=== PATIENT | male | born 1980 | race Caucasian/White ===

== ENCOUNTER 2023-12-05 19:40 | Emergency (ER) | payer SELFPAY ==
[2023-12-05 19:47] VITALS: BP 127/72; PULSE 75; TEMP 36.7; O2SAT 100; BMI 25.1
--- NOTE | 2023-12-05 19:59 | CT_ITS ---
[address] [address] Patient Name: GILBERTO FONG MRN: [id number] date: 1980 Sex: M Assigned Patient Location: ER Current Patient Location: ED.MAIN Accession/Order Number: [id number] Exam Date: 12/05/2023 20:32 Report Date: 12/05/2023 22:26 At the request of: JOSE LOVE Procedure: CT soft tissue neck w con EXAM: CT soft tissue neck w con HISTORY: Probable right peritonsillar abscess COMPARISON: None. TECHNIQUE: Axial CT scans of the neck were obtained with IV contrast administration. MPR images were obtained. Dose reduction techniques were achieved by using: automated exposure control and/or adjustment of mA and /or kV according to patient size and/or use of iterative reconstruction technique. FINDINGS: The visualized intracranial contents appear normal. The visualized paranasal sinuses, middle ear cavities and mastoids are clear. The intraorbital contents appear normal. The visualized paranasal sinuses, middle ear cavities and mastoids are clear. The rd scientist spaces, parotid glands and left parapharyngeal spaces appear normal. An abnormal 2.2 x 1.4 x 2.2 cm right peritonsillar fluid collection lateral superiorly with peripheral enhancement indicates a peritonsillar abscess. Associated mild edema in the right parapharyngeal space and mild mucosal edema of the right side of the hypopharynx. A reactive 1.8 x 3.3 cm right level 2 lymph node is present. The oral tongue, the floor the mouth and the submandibular glands appear normal. The thyroid gland and the larynx show no abnormal mass. The prevertebral space shows no edema. The visualized upper lungs show mild centrilobular emphysema. Osseous structures are intact. CT/CT soft tissue neck w con IMPRESSION: A 2.2 x 1.4 x 2.2 cm right peritonsillar abscess with associated mild edema in the right parapharyngeal space and mild mucosal edema of the right side of the hypopharynx. A reactive slightly enlarged 1.8 x 3.3 cm right level 2 lymph node is present. Electronically authenticated by: MARCE BELTRAN Date: 12/05/2023 22:26
--- NOTE | 2023-12-05 20:03 | ED.GENADUL1 ---
HPI HPI - General Adult General Chief complaint: Upper Respiratory Infection Stated complaint: THROAT PAIN Time Seen by Provider: 12/05/23 19:54 Source: patient Mode of arrival: walk-in Limitations: no limitations History of Present Illness HPI narrative: 43-year-old male presents to the emergency department for throat pain. He has had for 3 to 4 days and it has been getting worse. No known ill contacts and he has not had any fever. The pain is on the right side of his throat and it is worse when he swallows and the pain is moderate to severe. Related Data Home Medications ?Medication ?Instructions ?Recorded ?Confirmed No Known Home Medications 12/05/23 12/05/23 Allergies Allergy/AdvReac Type Severity Reaction Status Date / Time No Known Drug Allergies Allergy Verified 12/05/23 19:51 Opioid HPI Opioid Management Most Recent Opioid Data: No Data to Display Review of Systems ROS Narrative A ten point review of systems is negative except as noted above. Exam Narrative Exam Narrative: Nurses note and vital signs reviewed and patient is not hypoxic. General: The patient appears uncomfortable. He is in no respiratory distress. Skin: Warm, dry, no pallor noted. There is no rash noted. Head: Normocephalic, atraumatic Eye: Normal conjunctiva, no drainage Ears, Nose, Mouth, and Throat: oral mucosa is moist. Nares patent. He has right peritonsillar swelling with deviation of the uvula towards the left. No swelling to the floor of his mouth and he is handling his oral secretions well. Cardiovascular: Regular Rate and Rhythm Respiratory: Patient is in no distress, no accessory muscle use, lungs are clear to auscultation, no wheezing, rales or rhonchi Back: non-tender GI: Soft and nontender Musculoskeletal: The patient has no evidence of calf tenderness, no pitting edema, symmetrical pulses noted bilaterally Neurological: A&O, normal speech Psychiatric: Cooperative Constitutional Vital Signs, click to edit/add: Last Vital Signs Temp 98.0 F 12/05/23 19:47 Pulse 75 12/05/23 19:47 Resp 18 12/05/23 19:47 BP 127/72 12/05/23 19:47 Pulse Ox 100 12/05/23 19:47 O2 Del Method Room Air 12/05/23 19:47 Course Vital Signs Vital signs: Vital Signs Temperature 98.0 F 12/05/23 19:47 Pulse Rate 75 12/05/23 19:47 Respiratory Rate 18 12/05/23 19:47 Blood Pressure 127/72 12/05/23 19:47 Pulse Oximetry 100 12/05/23 19:47 Oxygen Delivery Method Room Air 12/05/23 19:47 Temperature 98.0 F 12/05/23 19:47 Pulse Rate 75 12/05/23 19:47 Respiratory Rate 18 12/05/23 19:47 Blood Pressure 127/72 12/05/23 19:47 Pulse Oximetry 100 12/05/23 19:47 Oxygen Delivery Method Room Air 12/05/23 19:47 Medical Decision Making MDM Narrative Medical decision making narrative: Peritonsillar abscess is identified on the right. He is handling his oral secretions well and at this point airway is not an issue. He was given IV Decadron and IV Unasyn and I have spoken to the hospitalist and ENT physician at [facility] and the patient is excepted there. He is agreeable and stable for transfer. Findings were discussed thoroughly with the patient. Differential Diagnosis Differential Diagnosis: Peritonsillar abscess, peritonsillar cellulitis Lab Data Lab results reviewed: Yes I reviewed the patient's lab results Labs: Lab Results 12/05/23 12/05/23 Range/Units 19:52 20:20 WBC 17.0 H (4.0-11.0) 10^3/uL RBC 4.43 L (4.70-6.10) 10^6/uL Hgb 14.0 (14.0-18.0) g/dL Hct 41.5 L (42.0-54.0) % MCV 93.7 (80.0-94.0) fL MCH 31.6 (25.9-34.0) pg MCHC 33.7 (29.9-35.2) g/dL RDW 12.6 (11.0-15.0) % Plt Count 334 (150-450) 10^3/uL MPV 9.6 (9.5-13.5) fL Neut % (Auto) 79.6 H (43.0-75.0) % Lymph % (Auto) 13.5 L (20.5-60.0) % [place] % (Auto) 4.1 (1.7-12.0) % Eos % (Auto) 1.9 (0.9-7.0) % Baso % (Auto) 0.5 (0.2-2.0) % Neut # (Auto) 13.6 H (1.4-6.5) 10^3/uL Lymph # (Auto) 2.3 (1.2-3.8) 10^3/uL [place] # (Auto) 0.7 (0.3-0.8) 10^3/uL Eos # (Auto) 0.3 (0.0-0.7) 10^3/uL Baso # (Auto) 0.1 (0.0-0.1) 10^3/uL Abs Immat Gran (auto) 0.06 H (0.00-0.03) 10^3/uL Imm/Tot Granulo (auto) 0.4 (0.0-0.5) % Sodium 129 L (136-145) mmol/L Potassium 3.7 (3.5-5.1) mmol/L Chloride 95 L (98-107) mmol/L Carbon Dioxide 30.9 (21.0-32.0) mmol/L Anion Gap 6.8 BUN 9.0 (7.0-18.0) mg/dL Creatinine 1.07 (0.70-1.30) mg/dL Est GFR ( Amer) >60 (>=60) Est GFR (Non-Af Amer) >60 (>=60) BUN/Creatinine Ratio 8.4 Glucose 171 H (74-106) mg/dL Calcium 8.6 (8.5-10.1) mg/dL Monoscreen Negative (NEGATIVE) Streptococcus Screen Negative Imaging Data CT neck: Radiologist's impression: ITS Impressions Soft Tissue Neck CT 12/05/23 19:59 IMPRESSION: A 2.2 x 1.4 x 2.2 cm right peritonsillar abscess with associated mild edema in the right parapharyngeal space and mild mucosal edema of the right side of the hypopharynx. A reactive slightly enlarged 1.8 x 3.3 cm right level 2 lymph node is present. Electronically authenticated by: MARCE BELTRAN Date: 12/05/2023 22:26 Discharge Plan Discharge Chief Complaint: Upper Respiratory Infection Clinical Impression: Peritonsillar abscess Patient Disposition: Xfer Acute Care Hospital Time of Disposition Decision: 23:26 Discharge Location: [facility] Condition: Fair Mode of Transportation: EMS
[2023-12-05 20:06] LABS: Internal Control Within Normal Limits; Strep A Antigen Screen Negative
[2023-12-05 20:39] LABS: Basophils Absolute Auto 0.1 10^3/uL (0.0-0.1); Basophils Percent Auto 0.5 % (0.2-2.0); Eosinophils Absolute Auto 0.3 10^3/uL (0.0-0.7); Eosinophils Percent Auto 1.9 % (0.9-7.0); Hematocrit 41.5 % (42.0-54.0); Immature Granulocytes Abs Auto 0.06 10^3/uL (0.00-0.03); Immature Granulocytes Pct Auto 0.4 % (0.0-0.5); Lymphocytes Absolute Auto 2.3 10^3/uL (1.2-3.8); Lymphocytes Percent Auto 13.5 % (20.5-60.0); Mean Corpuscular HGB Conc 33.7 g/dL (29.9-35.2); Mean Corpuscular Hemoglobin 31.6 pg (25.9-34.0); Mean Corpuscular Volume 93.7 fL (80.0-94.0); Mean Platelet Volume 9.6 fL (9.5-13.5); Monocytes Absolute Auto 0.7 10^3/uL (0.3-0.8); Monocytes Percent Auto 4.1 % (1.7-12.0); Neutrophils Absolute Auto 13.6 10^3/uL (1.4-6.5); Neutrophils Percent Auto 79.6 % (43.0-75.0); Platelet Count 334 10^3/uL (150-450); Red Blood Count 4.43 10^6/uL (4.70-6.10); Red Cell Distribution Width 12.6 % (11.0-15.0)
[2023-12-05 20:52] LABS: Anion Gap 6.8; BUN Creatinine Ratio 8.4; Calcium 8.6 mg/dL (8.5-10.1); Carbon Dioxide 30.9 mmol/L (21.0-32.0); Chloride 95 mmol/L (98-107); Estimated GFR (African America >60 (>=60); Estimated GFR (Non-African Ame >60 (>=60); Glucose 171 mg/dL (74-106); Potassium 3.7 mmol/L (3.5-5.1); Sodium 129 mmol/L (136-145)
[2023-12-05 20:54] LABS: Internal Control Within Normal Limits; Mono Screen NEGATIVE (NEGATIVE)
[2023-12-05] MEDS: AMPICILLIN SODIUM/SULBACTAM NA 3 GM in 0.9 % SODIUM CHLORIDE 100 ML IV (20:54)
[2023-12-05] MEDS: DEXAMETHASONE SOD PHOS 10 MG/ML VIAL IV (23:37)
[2023-12-05 23:40] VITALS: BP 118/73; PULSE 63; O2SAT 99
[2023-12-06 03:34] VITALS: BP 98/53; PULSE 66; O2SAT 98
== END 2023-12-06 04:14 | disposition short-term general hospital (02) ==
PROVIDERS: Emergency Provider Emergency Medicine
DX: J36 Peritonsillar abscess (principal)
CPT/HCPCS: 36415; 70491; 80048; 85025; 86308; 87040; 87070; 87880; 96365; 96375; 99285; J0295; J1100; Q9967

== ENCOUNTER 2025-02-26 01:38 | Emergency (ER) | payer OTHER, SELFPAY ==
[2025-02-26 01:39] VITALS: BP 134/80; PULSE 85; TEMP 36.4; O2SAT 100; BMI 23.6
--- OUTSIDE RECORDS SUMMARY | 2025-02-26 01:49 | XMS_ITS | CCD ---
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 Name Role Phone Unavailable Primary Care Provider UnavailJOSESITO Singh Attending Unavailable LISA JIANG Attending Unavailable Lesa Chapin CNP Primary Care Provider Unavailable Primary Care Provider UnavailLINDA Can Attending Unavailable JOSE LOVE Referring Unavailable EMILIE PEREZ Admitting Unavailable LINDA CASILLAS Consulting Unavailable DEBORAH MATTHEWS Consulting Unavailable PEEWEE HUERTA Consulting Unavailable Medications Current Medications Medication Drug Class(es) Dates Sig (Normalized) Sig (Original) cephalexin 500 mg oral capsule (4 sources) Cephalosporin Antibacterial Start: 12-30-2020 End: 01-09-2021 Cephalexin 500 MG Oral Capsule 01/06/2021 Provider: Start: 05-02-2019 End: 05-09-2019 take 1 capsule by mouth four times daily cephALEXin (KEFLEX) 500 MG capsule Take 1 capsule by mouth 4 times daily for 7 days 28 capsule 0 05/02/2019 05/09/2019 Active ibuprofen 600 mg oral tablet (1 source) Nonsteroidal Anti-inflammatory Drug Start: 12-30-2020 take 1 tablet by mouth four times daily as needed for pain ibuprofen (ADVIL;MOTRIN) 600 MG tablet Take 1 tablet by mouth 4 times daily as needed for Pain 60 tablet 1 12/30/2020 Active Start: 12-30-2020 take 1 tablet by dwight th four times daily as needed for pain ibuprofen (ADVIL;MOTRIN) 600 MG tablet Take 1 tablet by mouth 4 times daily as needed for Pain 60 tablet 1 12/30/2020 Active Probiotic Acidophilus (FLORANEX) TABS (1 source) Start: 12-30-2020 End: 01-29-2021 take 1 tablet by mouth once daily Probiotic Acidophilus (FLORANEX) TABS Take 1 tablet by mouth daily 30 tablet 0 12/30/2020 01/29/2021 Active Completed/Discontinued Medications Medication Drug Class(es) Dates Sig (Normalized) Sig (Original) ceFAZolin (ANCEF) 1,000 mg in dextrose 5 % 50 mL IVPB (mini-bag) (1 source) Start: 12-30-2020 End: 12-30-2020 ceFAZolin (ANCEF) 1,000 mg in dextrose 5 % 50 mL IVPB (mini-bag) dicyclomine hydrochloride 10 mg oral capsule (1 source) Anticholinergic Start: 01-08-2016 End: 05-02-2019 take 1 capsule by mouth four times daily before mealtime dicyclomine (BENTYL) 10 MG capsule Take 1 capsule by mouth 4 times daily (before meals and nightly) 12 capsule 3 01/08/2016 05/02/2019 Discontinued (LIST CLEANUP) ondansetron 4 mg disintegrating oral tablet (1 source) Serotonin-3 Receptor Antagonist Start: 01-08-2016 End: 05-02-2019 take 1 tablet by mouth every six hours as needed for nausea ondansetron (ZOFRAN ODT) 4 MG disintegrating tablet Take 1 tablet by mouth every 6 hours as needed for Nausea or Vomiting 10 tablet 0 01/08/2016 05/02/2019 Discontinued (LIST CLEANUP) 50 ml sodium chloride 9 mg/ml injection (1 source) Start: 12-30-2020 End: 12-30-2020 0.9 % sodium chloride bolus Problems Active Problems Problem Classification Problem Date Documented Date Episodic/Chronic Acute and chronic tonsillitis (2 sources) Peritonsillar abscess; Translations: [Peritonsillar abscess] Onset: 12-06-2023 Episodic Alcohol-related disorders (3 sources) Alcohol abuse; Translations: [Alcohol abuse, unspecified] Onset: 01-06-2021 Chronic Immunizations and screening for infectious disease (2 sources) HIV screening; Translations: [Special screening examination for other specified viral diseases] Onset: 01-06-2021 Episodic Mood disorders (3 sources) Depressive disorder; Translations: [Major depressive disorder, single episode, unspecified] Onset: 05-31-2015 05-31-2015 Chronic Open wounds of extremities (5 sources) Laceration of right wrist; Translations: [Laceration without foreign body of right wrist, initial encounter] Onset: 01-06-2021 Episodic Other injuries and conditions due to external causes (1 source) Puncture wound - injury; Translations: [Other injury of unspecified body region, initial encounter] Episodic Other nutritional; endocrine; and metabolic disorders (2 sources) Finding of body mass index; Translations: [Body mass index (observable entity)] Onset: 01-06-2021 Episodic Other screening for suspected conditions (not mental disorders or infectious disease) (2 sources) Encounter for screening for diabetes mellitus; Translations: [Diabetes Risk Test Score] Onset: 01-06-2021 Episodic Peritonitis and intestinal abscess (2 sources) Peritoneal abscess; Translations: [Peritoneal abscess] Onset: 12-06-2023 Episodic Substance-related disorders (3 sources) Tobacco dependence syndrome; Translations: [Tobacco use disorder] Onset: 01-06-2021 Chronic Past or Other Problems Problem Classification Problem Date Documented Da te Episodic/Chronic Open wounds of extremities (1 source) Laceration of hand Episodic Results Test Name Value Interpretation Reference Range Facility Cult,[place] 12-08-2023 Cult,Wound Specimen Description .THROAT Direct Exam FEW NEUTROPHILS FEW GRAM POSITIVE COCCI Culture STREPTOCOCCUS PYOGENES (GROUP A) HEAVY GROWTH NO NORMAL SHANEKA Report Status FINAL 12/08/2023 Normal [facility] Comment on above: Performed By: #### W DC #### [facility] [employer] [address] [place] [address] [id number] Pole Framer Machine: Humza Benítez MD CBC auto differentialOrdered By: Lisa Jiang on 12-30-2020 Absolute Eos # 0.75 High Blue [employer] [facility] Work Phone: Absolute Immature Granulocyte <0.03 [employer] Work Phone: Absolute Lymph # 3.29 [employer] [facility] Work Phone: Absolute [place] # 0.61 [employer] [facility] Work Phone: Basophils (Bld) [#/Vol] 0.09 10*3/uL [employer] Work Phone: Basophils/100 WBC (Bld) 1 % 0 - 2 % M [employer] Phone: Differential Type NOT REPORTED [employer] Phone: Eosinophils/100 WBC (Bld) 6 % High 1 - 4 % [employer] Phone: Hematocrit (Bld) [Volume fraction] 41.9 % 40.7 - 50.3 % [employer] Phone: Hemoglobin.gastrointesti nal spec 1 Ql (Stl) 14.0 g/dL 13.0 - 17.0 g/dL [employer] Phone: Immature granulocytes/100 WBC (Bld) 0 % 0 [employer] Phone: Interpretation and review of laboratory results Abnormal [employer] Phone: Lymphocytes/100 WBC (Bld) 27 % 24 - 43 % [employer] Phone: MCH (RBC) [Entitic mass] 31.4 pg 25. 2 - 33.5 pg [employer] Phone: MCHC (RBC) [Mass/Vol] 33.4 g/dL 28.4 - 34.8 g/dL [employer] Phone: MCV (RBC) [Entitic vol] 93.9 fL 82.6 - 102.9 fL [employer] Phone: Monocytes/100 WBC (Bld) 5 % 3 - 12 % M [employer] Phone: NRBC Automated 0.0 0.0 per 100 WBC [employer] Phone: Platelet distribution width (Bld) [Ratio] 13.2 % 11.8 - 14.4 % [employer] Phone: Platelet Estimate NOT REPORTED [employer] Phone: Platelet mean volume (Bld) [Entitic vol] 9.9 fL 8.1 - 13.5 fL [employer] Work Phone: Platelets (Bld) [#/Vol] 254 10*3/uL [employer] Phone: RBC (Bld) [#/Vol] 4.46 10*6/uL 4.21 - 5.7 7 m/uL [employer] Work Phone: RBC (Bld) [#/Vol] NOT REPORTED [employer] Phone: Segmented neutrophils/100 WBC (Bld) 61 % 36 - 65 % [employer] Work Phone: Segs Absolute 7.34 [employer] Work Phone: WBC (Bld) [#/Vol] 12.1 10*3/uL High [employer] Phone: WBC (Bld) [#/Vol] NOT REPORTED [employer] Phone: [employer] Phone: CBC with Diffon 12-30-2020 Abs. Basophil 0.09 k/uL Normal 0.00-0.20 [facility] Comment on above: Performed By: #### C P, CDP #### [facility] [address] [place] [address] Pole Framer Machine: Catracho Chong MD Abs.Imm.Granulocyte <0.03 Normal 0.00-0.30 [facility] Comment on above: Performed By: #### C P, CDP #### [facility] [address] [place] [address] [employer] Fr[employer] Machine: Catracho Chong MD Abs.Neutrophil (Seg) 7.34 k/uL Normal 1.50-8.10 [facility] Comment on above: Performed By: #### C P, CDP #### [facility] [address] [place] [address] [employer] Framer Machine: Catracho Chong MD Basophils/100 WBC (Bld) 1 % Normal 0-2 M [facility] Comment on above: Performed By: #### C P, CDP #### [address] [place], [place] [id number] [employer] Machine: Catracho Chong MD Eosinophils (Bld) [#/Vol] 0.75 10*3/uL High 0.00-0.44 [facility] Comment on above: Performed By: #### C P, CDP #### [address] [place] [address] [employer] Machine: Catracho Chong MD Eosinophils/100 WBC (Bld) 6 % High 1-4 [facility] Comment on above: Performed By: #### C P, CDP #### [address] [place], [place] [id number] [employer] Machine: Catracho Chong MD Erythrocyte distribution width (RBC) [Ratio] 13.2 % Normal 11.8-14.4 [facility] Comment on above: Performed By: #### C P, CDP #### [address] [place], [place] [id number] [employer] Machine: Catracho Chong MD Hematocrit (Bld) [Volume fraction] 41.9 % Normal 40.7-50.3 [facility] Comment on above: Performed By: #### C P, CDP #### [address] [place], [place] [id number] [employer] Machine: Catracho Chong MD Hemoglobin (Bld) [Mass/Vol] 14.0 g/dL Normal 13.0-17.0 [facility] Comment on above: Performed By: #### C P, CDP #### [address] [place] [address] Pole Framer Machine: Catracho Chong MD Immature granulocytes/100 WBC (Bld) 0 % Normal 0 [facility] Comment on above: Performed By: #### C P, CDP #### [facility] [address] [place], [facility] Pole Framer Machine: Catracho Chong MD Lymphocytes (Bld) [#/Vol] 3.29 10*3/uL Normal 1.10-3.70 [facility] Comment on above: Performed By: #### C P, CDP #### [address] [place], [facility] [employer] Machine: Catracho Chong MD Lymphocytes/100 WBC (Bld) 27 % Normal 24-43 [facility] Comment on above: Performed By: #### C P, CDP #### [address] [place], [facility] [employer] Machine: Catracho Chong MD MCH (RBC) [Entitic mass] 31.4 pg Normal 25.2-33.5 [facility] Comment on above: Performed By: #### C P, CDP #### [address] [place], [facility] Pole Framer Machine: Catracho Chong MD MCHC (RBC) [Mass/Vol] 33.4 g/dL Normal 28.4-34.8 [facility] Comment on above: Performed By: #### C P, CDP #### [address] [place], [place] [address] Pole Framer Machine: Catracho Chong MD MCV (RBC) [Entitic vol] 93.9 fL Normal 82.6-102.9 M [facility] Comment on above: Performed By: #### C P, CDP #### [address] [place] [address] Pole Framer Machine: Catracho Chong MD Monocytes (Bld) [#/Vol] 0.61 10*3/uL Normal 0.10-1.20 [facility] Comment on above: Performed By: #### C P, CDP #### [facility] [address] [place], [place] [id number] Pole Framer Machine: Catracho Chong MD Monocytes/100 WBC (Bld) 5 % Normal 3-12 M [facility] Comment on above: Performed By: #### C P, CDP #### [facility] [address] [place], [place] [id number] [employer] Machine: Catracho Chong MD Neutrophil (Seg) 61 % Normal 36-65 [facility] Comment on above: Performed By: #### C P, CDP #### [facility] [address] [place], [place] [id number] [employer] Framer Machine: Catracho Chong MD NRBC Automated 0.0 per 100 WBC Normal 0.0 [facility] Comment on above: Performed By: #### C P, CDP #### [facility] [address] [place], [place] [id number] [employer] Machine: Catracho Chong MD Platelet mean volume (Bld) [Entitic vol] 9.9 fL Normal 8.1-13.5 [facility] Comment on above: Performed By: #### C P, CDP #### [address] [place], [place] [id number] Pole Fr[employer] Machine: Catracho Chong MD Platelets (Bld) [#/Vol] 254 10*3/uL Normal 138-453 [facility] Comment on above: Performed By: #### C P, CDP #### [facility] [address] [place] [address] [place] [place], [place] [id number] Pole Fr[employer] Machine: Catracho Chong MD RBC (Bld) [#/Vol] 4.46 10*6/uL Normal 4.21-5.77 [facility] Comment on above: Performed By: #### C P, CDP #### [facility] [address] [place] [address] Pole Framer Machine: Catracho Chong MD WBC (Bld) [#/Vol] 12.1 10*3/uL High 3.5-11.3 [facility] Comment on above: Performed By: #### C P, CDP #### [facility] [address] [place], [place] [id number] Pole [employer] Machine: Catracho Chong MD Auto Diff Performed NOT REPORTED Normal [facility] Comment on above: Performed By: #### C P, CDP #### [facility] [address] [place], [place] [id number] Pole Framer Machine: Catracho Chong MD Platelet Estimate NOT REPORTED Normal [facility] Comment on above: Performed By: #### C P, CDP #### [facility] [address] [place], [place] [id number] Pole Framer Machine: Catracho Chong MD RBC morphology finding Nom (Bld) NOT REPORTED Normal [facility] Comment on above: Performed By: #### C P, CDP #### [facility] [address] [place] [address] [place] [address] Pole Framer Machine: Catracho Chong MD WBC Morphology NOT REPORTED Normal [facility] Comment on above: Performed By: #### C P, CDP #### [facility] [address] [place] [address] Dr[place], [place] [id number] [employer] Machine: Catracho Chong MD Comp Metabolic Profon 2020 Calcium [Mass/Vol] 9.0 mg/dL Normal 8.6-10.4 [facility] Comment on above: Performed By: #### C P, CDP #### [facility] [address] [place], [place] [id number] [employer] Machine: Catracho Chong MD (cont.) Normal [facility] Comment on above: Result Comment: Aver age GFR for 30-39 years old: 107 mL/min/1.73sq m Chronic Kidney Disease: <60 mL/min/1.73sq m Kidney failure: <15 mL/min/1.73sq m eGFR calculated using average adult body mass. Additional eGFR calculator available at: http://[email or web address].Joroto/multiple_crcl_2012.htm Performed By: #### C P, CDP #### [facility] [address] [place], [place] [id number] Pole Framer Machine: Catracho Chong MD Albumin [Mass/Vol] 4.7 g/dL Normal 3.5-5.2 [facility] Comment on above: Performed By: #### C P, CDP #### [facility] [address] [place] [address] Pole Framer Machine: Catracho Chong MD Albumin/Glob Ratio 2.1 Normal 1.0-2.5 [facility] Comment on above: Performed By: #### C P, CDP #### [facility] [address] [place], [place] [id number] Pole Fr[employer] Machine: Catracho Chong MD Alkaline Phos 65 U/L Normal 40-129 [facility] Comment on above: Performed By: #### C P, CDP #### [facility] [address] [place], [place] [id number] Pole Framer Machine: Catracho Chong MD ALT [Catalytic activity/Vol] 15 U/L Normal 5-41 [facility] Comment on above: Performed By: #### C P, CDP #### [facility] [address] [place] [address] Pole Framer Machine: Catracho Chong MD Anion gap [Moles/Vol] 13 mmol/L Normal 9-17 [facility] Comment on above: Performed By: #### C P, CDP #### [facility] [address] [place], [place] [id number] Pole Fr[employer] Machine: Catracho Chong MD AST [Catalytic activity/Vol] 21 U/L Normal <40 [facility] Comment on above: Performed By: #### C P, CDP #### [facility] [address] [place], [place] [id number] Pole Framer Machine: Catracho Chong MD Bilirubin [Mass/Vol] 0.41 mg/dL Normal 0.3-1.2 [facility] Comment on above: Performed By: #### C P, CDP #### [facility] [address] [place], [place] [id number] Pole Framer Machine: Catracho Chong MD BUN/CRE Ratio 16 Normal 9-20 [facility] Comment on above: Performed By: #### C P, CDP #### [facility] [address] [place], [place] [id number] [employer] Machine: Catracho Chong MD Chloride [Moles/Vol] 100 mmol/L Normal 98-107 [facility] Comment on above: Performed By: #### C P, CDP #### [facility] [address] [place], [place] [id number] Pole Framer Machine: Catracho Chong MD CO2 [Moles/Vol] 22 mmol/L Normal 20-31 [facility] Comment on above: Performed By: #### C P, CDP #### [facility] [address] [place], [place] [id number] Pole Framer Machine: Catracho Chong MD Creatinine [Mass/Vol] 0.87 mg/dL Normal 0.70-1.20 [facility] Comment on above: Performed By: #### C P, CDP #### [facility] [address] [place], [place] [id number] Pole Framer Machine: Catracho Chong MD GFR, Amer >60 Normal >60 [facility] Comment on above: Performed By: #### C P, CDP #### [facility] [address] [place], [place] [id number] Pole Framer Machine: Catracho Chong MD GFR,non Amer >60 Normal >60 [facility] Comment on above: Performed By: #### C P, CDP #### [facility] [address] [place], [place] [phone] Pole Framer Machine: Catracho Chong MD Glucose [Mass/Vol] 109 mg/dL High 70-99 [facility] Comment on above: Performed By: #### C P, CDP #### [facility] [address] [place], [place] [id number] Pole Framer Machine: Catracho Chong MD Potassium [Moles/Vol] 3.9 mmol/L Normal 3.7-5.3 [facility] Comment on above: Performed By: #### C P, CDP #### [facility] [address] [place], [place] [id number] Pole Framer Machine: Catracho Chong MD Protein [Mass/Vol] 6.9 g/dL Normal 6.4-8.3 [facility] Comment on above: Performed By: #### C P, CDP #### [facility] [address] [place], [place] [id number] Pole Framer Machine: Catracho Chong MD Sodium [Moles/Vol] 135 mmol/L Normal 135-144 [facility] Comment on above: Performed By: #### C P, CDP #### [facility] [address] [place], [place] [id number] Pole Framer Machine: Catracho Chong MD Staging: Normal [facility] Comment on above: Result Comment: Stag e 1: Some kidney damage normal GFR Stage 2: Mild kidney damage GFR 60-89 Stage 3: Moderate kidney damage GFR 30-59 Stage 4: Severe kidney damage GFR 15-29 Stage 5: Severe kidney damage GFR <15 ESRD - chronic treatment by dialysis or transplant Performed By: #### C P, CDP #### [facility] [address] [place], [place] [id number] Pole Framer Machine: Catracho Chong MD Urea nitrogen [Mass/Vol] 14 mg/dL Normal 6-20 [facility] Comment on above: Performed By: #### C P, CDP #### [facility] [address] [place] [address] Pole Framer Machine: Catracho Chong MD Comprehensive Metabolic Pane lOrdered By: Lisa Jiang on 12-30-2020 Albumin [Mass/Vol] 4.7 g/dL 3.5 - 5.2 g/dL [facility] Phone: Albumin/Globulin [Mass ratio] 2.1 {ratio} [employer] Phone: ALP (Bld) [Catalytic activity/Vol] 65 U/L 40 - 129 U/L [facility] Phone: ALT [Catalytic activity/Vol] 15 U/L 5 - 41 U/L [facility] Phone: Anion gap [Moles/Vol] 13 mmol/L 9 - 17 mmol/L [facility] Phone: AST [Catalytic activity/Vol] 21 U/L <40 [employer] Phone: Bilirubin [Mass/Vol] 0.41 mg/dL 0.3 - 1 .2 mg/dL [facility] Phone: Calcium [Mass/Vol] 9.0 mg/dL 8.6 - 10. 4 mg/dL [employer] Phone: Chloride [Moles/Vol] 100 mmol/L 98 - 10 7 mmol/L [facility] Phone: CO2 [Moles/Vol] 22 mmol/L 20 - 31 mmol/L [employer] Phone: Creatinine [Mass/Vol] 0.87 mg/dL 0.70 - 1.20 mg/dL [employer] Phone: Free PSA/Total PSA [Mass fraction] 6.9 g/dL 6.4 - 8.3 g/dL [employer] Phone: GFR >60 >60 mL/min [facility] Work Phone: GFR Non- >60 >60 mL/min [facility] Work Phone: Glucose [Mass/Vol] 109 mg/dL High 70 - 99 mg/dL [facility] Work Phone: Interpretation and review of laboratory results Abnormal [facility] Work Phone: Potassium [Moles/Vol] 3.9 mmol/L 3.7 - 5.3 mmol/L [facility] Work Phone: Sodium [Moles/Vol] 135 mmol/L 135 - 144 mmol/L [facility] Work Phone: Urea nitrogen (BldV) [Mass/Vol] 14 mg/dL 6 - 20 mg/dL [facility] Work Phone: Urea nitrogen/Creatinine (Bld) [Mass ratio] 16 [facility] Work Phone: [facility] Work Phone: EthanolOrdered By: Lisa joseph on 12-30-2020 Ethanol [Mass/Vol] 173 mg/dL High <10 [facility] Work Phone: Ethanol percent 0.173 % High <0.010 [facility] Work Phone: Interpretation and review of laboratory results Abnormal [facility] Work Phone: [facility] Work Phone: Ethanol Alcoholon 12-30-2020 Ethanol [Mass/Vol] 173 mg/dL High <10 [facility] Comment on above: Performed By: #### A LCB #### [facility] [address] [place] [address] Pole Framer Machine: Catracho Chong MD Ethanol percent 0.173 % High <0.010 [facility] Comment on above: Performed By: #### A LCB #### [facility] [address] [place] [address] [employer] Machine: Catracho Chong MD Laboratory - Chemistry and C hemistry - challengeOrdered By: Lisa Jiang on 12-30-2020 GFR/1.73 sq M.predicted MDRD (S/P/Bld) [Vol rate/Area] [employer] Phone: Comment on above: Average GFR for 30-3 9 years old: 107 mL/min/1.73sq m Chronic Kidney Disease: <60 mL/min/1.73sq m Kidney failure: <15 mL/min/1.73sq m eGFR calculated using average adult body mass. Additional eGFR calculator available at: http://www.Youth Noise/Geckoboard_crcl_2012.htm Stage 1: Some kidney damage normal GFR Stage 2: Mild kidney damage GFR 60-89 Stage 3: Moderate kidney damage GFR 30-59 Stage 4: Severe kidney damage GFR 15-29 Stage 5: Severe kidney damage GFR <15 ESRD - chronic treatment by dialysis or transplant No Panel InformationOrdered By: Lisa Jiang on 12-30-2020 1. No acute osseous abnormality. 2. Soft tissue laceration along the ulnar aspect of the wrist. No radiopaque foreign body. [employer] Phone: EXAMINATION: TWO XRA Y VIEWS OF THE RIGHT HUMERUS; TWO XRAY VIEWS OF THE RIGHT FOREARM; THREE XRAY VIEWS OF THE RIGHT HAND 12/30/2020 4:30 am COMPARISON: None. HISTORY: ORDERING SYSTEM PROVIDED HISTORY: fall TECHNOLOGIST PROVIDED HISTORY: fall FINDINGS: The glenohumeral and acromioclavicular joints are intact. The elbow is unremarkable. No fracture or dislocation. The joint spaces are preserved. A soft tissue laceration is seen along the ulnar aspect of the wrist. No radiopaque foreign body. [employer] Phone: [place], [employer] Incoming Radiant Results From [facility] - 12/30/2020 4:59 AM EDT EXAMINATION: TWO XRAY VIEWS OF THE RIGHT HUMERUS; TWO XRAY VIEWS OF THE RIGHT FOREARM; THREE XRAY VIEWS OF THE RIGHT HAND 12/30/2020 4:30 am COMPARISON: None. HISTORY: ORDERING SYSTEM PROVIDED HISTORY: fall TECHNOLOGIST PROVIDED HISTORY: fall FINDINGS: The glenohumeral and acromioclavicular joints are intact. The elbow is unremarkable. No fracture or dislocation. The joint spaces are preserved. A soft tissue laceration is seen along the ulnar aspect of the wrist. No radiopaque foreign body. IMPRESSION: 1. No acute osseous abnormality. 2. Soft tissue laceration along the ulnar aspect of the wrist. No radiopaque foreign body. [facility] Work Phone: [facility] Work Phone: XR HAND RIGHT (MIN 3 VIEWS)o n 12-30-2020 XR HAND RIGHT (MIN 3 VIEWS) EXAMINATION: TWO XRAY VIEWS OF THE RIGHT HUMERUS; TWO XRAY VIEWS OF THE RIGHT FOREARM; THREE XRAY VIEWS OF THE RIGHT HAND 12/30/2020 4:30 am COMPARISON: None. HISTORY: ORDERING SYSTEM PROVIDED HISTORY: fall TECHNOLOGIST PROVIDED HISTORY: fall FINDINGS: The glenohumeral and acromioclavicular joints are intact. The elbow is unremarkable. No fracture or dislocation. The joint spaces are preserved. A soft tissue laceration is seen along the ulnar aspect of the wrist. No radiopaque foreign body. IMPRESSION: 1. No acute osseous abnormality. 2. Soft tissue laceration along the ulnar aspect of the wrist. No radiopaque foreign body. Interpreted by: Raymond Acevedo MD Signed by: Raymond Acevedo MD 12/30/20 Final result Normal [facility] XR HUMERUS RIGHT (MIN 2 VIEW S)on 12-30-2020 XR HUMERUS RIGHT (MIN 2 VIEWS) EXAMINATION: TWO XRAY VIEWS OF THE RIGHT HUMERUS; TWO XRAY VIEWS OF THE RIGHT FOREARM; THREE XRAY VIEWS OF THE RIGHT HAND 12/30/2020 4:30 am COMPARISON: None. HISTORY: ORDERING SYSTEM PROVIDED HISTORY: fall TECHNOLOGIST PROVIDED HISTORY: fall FINDINGS: The glenohumeral and acromioclavicular joints are intact. The elbow is unremarkable. No fracture or dislocation. The joint spaces are preserved. A soft tissue laceration is seen along the ulnar aspect of the wrist. No radiopaque foreign body. IMPRESSION: 1. No acute osseous abnormality. 2. Soft tissue laceration along the ulnar aspect of the wrist. No radiopaque foreign body. Interpreted by: Rayomnd Acevedo MD Signed by: Raymond Acevedo MD 12/30/20 Final result Normal [facility] XR RADIUS ULNA RIGHT (2 VIEW S)on 12-30-2020 XR RADIUS ULNA RIGHT (2 VIEWS) EXAMINATION: TWO XRAY VIEWS OF THE RIGHT HUMERUS; TWO XRAY VIEWS OF THE RIGHT FOREARM; THREE XRAY VIEWS OF THE RIGHT HAND 12/30/2020 4:30 am COMPARISON: None. HISTORY: ORDERING SYSTEM PROVIDED HISTORY: fall TECHNOLOGIST PROVIDED HISTORY: fall FINDINGS: The glenohumeral and acromioclavicular joints are intact. The elbow is unremarkable. No fracture or dislocation. The joint spaces are preserved. A soft tissue laceration is seen along the ulnar aspect of the wrist. No radiopaque foreign body. IMPRESSION: 1. No acute osseous abnormality. 2. Soft tissue laceration along the ulnar aspect of the wrist. No radiopaque foreign body. Interpreted by: Raymond Acevedo MD Signed by: Raymond Acevedo MD 12/30/20 Final result Normal [facility] XR FOOT RIGHT (MIN 3 VIEWS)o n 11-19-2020 XR FOOT RIGHT (MIN 3 VIEWS) EXAMINATION: THREE XRAY VIEWS OF THE RIGHT FOOT 11/18/2020 9:28 pm COMPARISON: None. HISTORY: ORDERING SYSTEM PROVIDED HISTORY: stepped on nail TECHNOLOGIST PROVIDED HISTORY: stepped on nail FINDINGS: There is no evidence of acute fracture. There is normal alignment of the tarsometatarsal joints. No acute joint abnormality. No focal osseous lesion. No focal soft tissue abnormality. IMPRESSION: No acute osseous abnormality. No radiopaque foreign body. Interpreted by: Raymond Acevedo MD Signed by: Raymond Acevedo MD 11/18/20 Final result Normal [facility] XR FOOT RIGHT (MIN 3 VIEWS)O rdered By: Josesito Singh on 11-18-2020 No acute osseous abnormality. No radiopaque foreign body. [facility]: EXAMINATION: THREE XRAY VIEWS OF THE RIGHT FOOT 11/18/2020 9:28 pm COMPARISON: None. HISTORY: ORDERING SYSTEM PROVIDED HISTORY: stepped on nail TECHNOLOGIST PROVIDED HISTORY: stepped on nail FINDINGS: There is no evidence of acute fracture. There is normal alignment of the tarsometatarsal joints. No acute joint abnormality. No focal osseous lesion. No focal soft tissue abnormality. [employer] Work Phone: [place], [place] Incoming Radiant Results From [facility] - 11/18/2020 10:09 PM EDT EXAMINATION: THREE XRAY VIEWS OF THE RIGHT FOOT 11/18/2020 9:28 pm COMPARISON: None. HISTORY: ORDERING SYSTEM PROVIDED HISTORY: stepped on nail TECHNOLOGIST PROVIDED HISTORY: stepped on nail FINDINGS: There is no evidence of acute fracture. There is normal alignment of the tarsometatarsal joints. No acute joint abnormality. No focal osseous lesion. No focal soft tissue abnormality. IMPRESSION: No acute osseous abnormality. No radiopaque foreign body. [employer] Work Phone: [employer] Work Phone: Vital Signs Date Time Vital Sign Value Performing Clinician Hero dillard 01-06-2021 18:18-0400 Diastolic blood pressure 86 mm[Hg] Lesa Chapin [facility] Work Phone: [facility] Work Phone: 01-06-2021 18:18-0400 Systolic blood pressure 138 mm[Hg] Lesa Chapin [facility] Work Phone: [facility] Work Phone: 01-06-2021 17:32-0400 Body height 173.99 cm Lesa Chapin [facility] Work Phone: [facility] Work Phone: 01-06-2021 17:32-0400 Body mass index (BMI) [Ratio] 29.9 kg/m2 Lesa Chapin [facility] Work Phone: [facility] Work Phone: 01-06-2021 17:32-0400 Body surface area Derived from formula 2.05 m2 Lesajosef Chapin [facility] Work Phone: [facility] Work Phone: 01-06-2021 17:32-0400 Body temperature 97.2 [degF] Lesa Chapin [employer]INATION GRAD[employer] Work Phone: [facility] Work Phone: 01-06-2021 17:32-0400 Body weight 90.63 kg Lesa Chapin CNP Work Phone: [facility] Work Phone: 01-06-2021 17:32-0400 Diastolic blood pressure 94 mm[Hg] Lesa Chapin [employer]ATION [employer]AD[employer] Work Phone: [facility] Work Phone: 01-06-2021 17:32-0400 Heart rate 71 /min Lesa Chapin [employer]INATION GRAD[employer] Work Phone: [facility] Work Phone: 01-06-2021 17:32-0400 Respiratory rate 18 /min Lesa Chapin [employer]AMINATION GRADER Work Phone: [facility] Work Phone: 01-06-2021 17:32-0400 SaO2% (BldA) [Mass fraction] 99 % Lesa Chapin [employer]AMINATION GRADER Work Phone: [facility] Work Phone: 01-06-2021 17:32-0400 Systolic blood pressure 160 mm[Hg] Lesa Chapin [employer]INATION GRADER Work Phone: [facility] Work Phone: 12-30-2020 06:54-0400 Diastolic blood pressure 86 mm[Hg] Lisa Jiang MD Work Phone: [employer] Work Phone: 12-30-2020 06:54-0400 Heart rate 53 /min Lisa Jiang MD Work Phone: [employer] Work Phone: 12-30-2020 06:54-0400 Respiratory rate 18 /min Lisa Jiang MD Work Phone: [employer] Work Phone: 12-30-2020 06:54-0400 SaO2% (BldA) [Mass fraction] 98 % Lisa Jiang MD Work Phone: [employer] Work Phone: 12-30-2020 06:54-0400 Systolic blood pressure 135 mm[Hg] Lisa Jiang MD Work Phone: [employer] Work Phone: 12-30-2020 06:00-0400 Body temperature 97.9 [degF] Lisa Jiang MD Work Phone: [employer] Work Phone: 12-30-2020 03:56-0400 Body height 182.9 cm Lisa Jiang MD Work Phone: [employer] Work Phone: 12-30-2020 03:56-0400 Body mass index (BMI) [Ratio] 29.84 kg/m2 Lisa Jiang MD Work Phone: [employer] Work Phone: 12-30-2020 03:56-0400 Body weight 99.79 kg Lisa Jiang MD Work Phone: [employer] Work Phone: 11-18-2020 21:27-0400 Body temperature 96.6 [degF] Josesito Singh MD Work Phone: [employer] Work Phone: 11-18-2020 21:27-0400 Diastolic blood pressure 104 mm[Hg] Josesito Singh MD Work Phone: [employer] Work Phone: 11-18-2020 21:27-0400 Systolic blood pressure 164 mm[Hg] Josesito Singh MD Work Phone: [employer] Work Phone: 11-18-2020 21:22-0400 Heart rate 63 /min Josesito Singh MD Work Phone: [employer] Work Phone: 11-18-2020 21:22-0400 Respiratory rate 18 /min Josesito Singh MD Work Phone: [employer] Work Phone: 11-18-2020 21:22-0400 SaO2% (BldA) [Mass fraction] 98 % Josesito Singh MD Work Phone: [employer] Work Phone: 05-02-2019 16:12-0500 Body temperature 97.5 [degF] [employer] Work Phone: 05-02-2019 16:12-0500 Diastolic blood pressure 89 mm[Hg] [employer] Work Phone: 05-02-2019 16:12-0500 Heart rate 66 /min [employer] Work Phone: 05-02-2019 16:12-0500 Respiratory rate 17 /min [employer] Work Phone: 05-02-2019 16:12-0500 SaO2% (BldA) [Mass fraction] 99 % [employer] Work Phone: 05-02-2019 16:12-0500 Systolic blood pressure 160 mm[Hg] [employer] 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 Lesa Chapin [employer]AMINATION GRADER Work Phone: [facility] Work Phone: Start: 12-30-2020 Emergency department patient visit LISASTONEY JIANG [facility] Start: 12-30-2020 End: 12-30-2020 Emergency department patient visit Lisa Jiang MD Work Phone: [facility] ED Comment on above: Laceration of right wrist, initial encounter (Primary Dx) Start: 11-18-2020 End: 11-19-2020 Emergency department patient visit JOSESITO SINGH [facility] Start: 11-18-2020 End: 11-18-2020 Emergency department patient visit Josesito Singh MD Work Phone: [facility] ED Comment on above: Puncture wound (Prim wanda Dx) Start: 05-02-2019 End: 05-02-2019 Emergency department patient visit [facility] ED Comment on above: Laceration of left h and without foreign body, initial encounter (Primary Dx) Procedures Date Procedure Procedure Detail Performing Clinician Start: 01-06-2021 Antibody hiv-1&hiv-2 single result Lesa Chapin [employer]ATION [employer]AD[employer] Work Phone: Start: 01-06-2021 Gluc bld gluc mntr d ev cleared fda spec home use Lesa Chapin EXAMINATION GRADER Work Phone: Start: 01-06-2021 Most recent diastol blood pres >/equal 90 mm hg Lesa Chapin [employer]AMINATION GRADER Work Phone: Start: 01-06-2021 Most recent systolic blood pres>/equal 140 mm hg Lesa Chapin [employer]AMINATION GRADER Work Phone: Start: 01-06-2021 Pt-focused hlth risk assmt score doc stnd instrm Lesa Chapin EXAMINATION GRADER Work Phone: Start: 12-30-2020 End: 12-30-2020 Radex humerus minimum 2 views Lisa Jiang MD Work Phone: Start: 12-30-2020 Assay of ethanol Urban Jiang MD Work Phone: Start: 12-30-2020 Comprehensive metabo lic panel Lisa Jiang MD Work Phone: Start: 11-18-2020 Radex foot complete minimum 3 views Josesito Singh MD Work Phone: Plan of Treatment Date Care Activity Detail Author Start: 05-02-2029 DTaP/Tdap/Td vaccine (3 - Td or Tdap) DTaP/Tdap/Td vaccine (3 - Td or Tdap) [employer] Phone: Start: 05-02-2029 DTaP/Tdap/Td vaccine (3 - Td) DTaP/Tdap/Td vaccine (3 - Td) [employer] Work Phone: Start: 01-17-2021 FQ visit, estab pt Medical Established Patient [facility] Work Phone: Start: 01-15-2021 Influenza vaccination Flu vaccine (#1) [employer] Phone: Start: 01-09-2021 FQ visit, estab pt Medical Established Patient [facility] Work Phone: Start: 01-15-2019 Influenza vaccination Flu vaccine (#1) [employer] Phone: Start: 1996 HIV screen HIV screen [employer] Phone: Start: 1996 HIV screening HIV screen [employer] Phone: Start: 1993 COVID-19 Vaccine (1) COVID-19 Vaccine (1) [employer] Phone: Start: 08-10-1987 Pneumococcal 0-64 years Vaccine (1 of 2 - PPSV23) Pneumococcal 0-64 years Vaccine (1 of 2 - PPSV23) [employer] Phone: Start: 1982 Varicella vaccine (1 of 2 - 2-dose childhood series) Varicella vaccine (1 of 2 - 2-dose childhood series) [employer] Phone: Start: 1981 Hepatitis C screening Hepatitis C screen [employer] Phone: Immunizations Immunization Date Immunization Notes Care Provider Fa cility 05-02-2019 diphtheria, tetanus toxoids and acellular pertussis vaccine, unspecified formulation [employer] Phone: 05-02-2019 tetanus toxoid, redu brenda diphtheria toxoid, and acellular pertussis vaccine, adsorbed [employer] Phone: 10-24-2013 tetanus toxoid, redu brenda diphtheria toxoid, and acellular pertussis vaccine, adsorbed [employer] Phone: Payers Date Payer Category Payer Unknown [id number] 1980 Unknown [id number] Self-pay [id number] Social History Date Type Detail Facility Start: 06-17-2000 End: 11-18-2020 Tobacco smoking status [facility] Current every day smoker [employer] Start: 06-17-2000 History of tobacco use Cigarette Smoker [employer] Start: 05-02-2019 End: 11-18-2020 Cigarettes smoked current (pack per day) - Reported [employer] Phone: Start: 11-18-2020 End: 12-30-2020 Tobacco use and exposure Never used [employer] Start: 05-02-2019 End: 11-18-2020 Alcohol intake Current drinker of alcohol (finding) [employer] Phone: Start: 09-28-2015 Alcohol Comment had about 12 b eers tonight and a couple of shots [employer] Work Phone: Start: 1980 Sex Assigned At Not on file [facility] [employer] Work Phone: Exposure to SARS-CoV-2 (event) Not sure [employer] [facility] Assertion Finding of alcoh ol intake (finding) [facility] Work Phone: Assertion Sexually active (finding) [facility] Work Phone: Assertion Smokeless tobacc o user (times used per day) [facility] Work Phone: Assertion Smoker (finding) [facility] Work Phone: Assertion Gender identity finding (finding) [facility] Work Phone: Assertion Moderate cigaret te smoker (10-19 cigs/day) (finding) [facility] Work Phone: Assertion Exposure to poll ution (event) [facility] Work Phone: Assertion Finding of sexua l orientation (finding) [facility] Work Phone: Tobacco smoking status Unknown if ever smoked [facility] Work Phone: Assertion Light cigarette smoker (1-9 cigs/day) (finding) [facility] Work Phone: NEGATED: Highlighted row Assertion Finding relating to drug misuse behavior (finding) [facility] Work Phone: Mental Status Date Assessment Result Facility Cognitive function Cognitive fun ctioning was normal Cognitive function finding (finding) [facility] Work Phone: Clinical Notes 11-18-2020 to 01-06-2021 Note Date & Type Note Facility 01-06-2021 Evaluation note Includes: Assessments for all patient encounters Findings Alcohol abuse - uncomplicated Establi shed Patient with Michaelle Nino [facility] 01/06/2021 Nicotine dependence uncomplicated BH Established Patient with Michaelle Nino [facility] 01/06/2021 Diabetes Risk Test Score was four score 01/06/2021 Medical New Patient with Lesa Chapin [facility] 01/06/2021 Open wound of the right wrist Medical Ne w Patient with Lesa Chapin [facility] 01/06/2021 Routine history and physical Medical New Patient with Lesa Chapin [facility] 01/06/2021 Visit for: screening for hum an immunodeficiency virus Medical New Patient with Lesa Chapni [facility] 01/06/2021 Z68.29 - Body mass index [BM I] 29.0-29.9, adult Medical New Patient with Lesa Chapin [facility] 01/06/2021 [facility] Work Phone: 1(946) 139-587108-23-2021 History general Narrative - Reported Includes: Medical History in patient's chart Description Last Updated pins in left shoulder 200001/06/2021 History of tooth extraction 01/06/2021 History of skin disorder psoriasis and e xczema 01/06/2021 [facility] Work Phone: 1(260) 248-867808-16-2021 History of Present illness Narrative* Lavonne Cheung RN - 12/30/2020 6:28 AM EDT Laceration site dressing applied and IV site removed at this time. [facility] Phone: 1(525) 873-311107-05-2021 Hospital Discharge instructions* Instructions* Josesito Singh MD - 11/18/2020 Tylenol and or Motrin for any pain. Keep foot clean with soap and water. Make sure that you dry your foot very well including in between toes. If you continue to have pain follow-up with podiatry. Seek medical attention immediately for any redness, swelling, signs of infection such as fevers chillsor any other acute concerns * Attachments The following attachments cannot be sent through Care Everywhere. * Foot Pain (Syrian) [facility] Phone: evaluation note* Diagnosis Puncture wound- Primary Open wound(s) (multiple) of unspecified site(s), without mention of complication documented in this encounter [employer] Phone: evaluation note* Diagnosis Laceration of right wrist, initial encounter- Primary documented in this encounter [employer] Phone: evaluation note* Diagnosis Laceration of left hand without foreign body, initial encounter- Primary documented in this encounter [employer] Phone: History of Present illness Narrative History of Present Illness not supported for this document type No History of Present Illness [facility] Work Phone: Hospital Discharge instructions* Attachments The following attachments cannot be sent through Care Everywhere. * Lacerations: Stitches (Syrian) * Video: Taking Care of Stitches (Syrian) * Hand Laceration: Stitches (Syrian) [facility]: Hospital Discharge instructions* Attachments The following attachments cannot be sent through Care Everywhere. * Lacerations: Open (Syrian) [facility] Phone: Instructions Instructions not supported for this document type No Instructions [facility] Work Phone: Patient problem outcome Narrative Includes: Evaluations & Outcomes for active Goals No Outcomes [facility] Work Phone: Reason for referral (narrative)No Reason for Referral [facility] Work Phone: Review of systems Narrative - Reported Review of Systems not supported for this document type No Review of Systems [facility] Work Phone: Advance Directives No Advanced Directives Records FoundDocuments on File Type Date Recorded Patient Psychological Operations Officer Expl anation ACP-Advance Directive ACP-Power of Reception Centre Manager Latest Code Status on File Code Status Date Activated Date Inactivated Comments Full Code 05/31/2015 6:46 AM 06/06/2015 4:38 PM Documents on File Type Date Recorded Patient Psychological Operations Officer Expl anation Advance Directives and Living Will Power of Reception Centre Manager Summary Purpose Family History No Family History Records Found Description Last Updated Paternal history of cardiovascular disor bon 01/06/2021 Paternal history of psoriasis 01/06/2021 Paternal history of stroke syndrome 12/16 Sor[place] history of cystic fibrosis 01/06 [place] history of type 2 diabetes tad tukelly 01/06/2021 Physical Exam Physical Exam not supported for this document type No Physical Exam Recorded Physical Exam not supported for this document type No Physical Exam Recorded Additional Source Comments Reason for Visit (unrecogniz ed section and content) Reason Comments Wound Check stepped on nail, rig ht foot, approx 10 days ago, states increased pain Reason Comments Arm Injury right forearm, state s jumped about 4 feet onto conrete and landed on arm, ETOH Reason Comments 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 Ordered Prescriptions (unrec ognized section and content) Prescription Sig Dispensed Refills Start Date End Da te ibuprofen (ADVIL;MOTRIN) 600 MG tablet Take 1 tablet by mouth 4 times daily as needed for Pain 60 tablet 1 12/30/2020 Probiotic Acidophilus (FLORANEX) TABS Take 1 tablet by mouth daily 30 tablet 0 12/30/2020 01/29/2021 cephALEXin (KEFLEX) 500 MG capsule Take 1 capsule by mouth 4 times daily for 10 days 40 capsule 0 12/30/2020 01/09/2021 Scheduled Active and Recently Administ ered Medications (unrecognized section and content) Medication Order 12/28/2020 12/29/2020 12/30/2020 0.9 % sodium chloride bolus (COMPLETED) 1,000 mL (10 mL/kg), Intravenous, at 500 mL/hr, Administer over 2 Hours, ONCE, On Wed12/30/20 at 0430, For 1 dose, For adult patients weighing > 55 kg (120 lbs.) and less than <50 years of age initiate 0.9NS at 500 mL/ hr. All bolus orders are to be given over 10 to 15 minutes 0425 (New Bag - Prov ider: Susan Hickey RN)0554 (Stopped - Provider: Susan Hickey RN) ceFAZolin (ANCEF) 1,000 mg in dextrose 5 % 50 mL IVPB (mini-bag) (COMPLETED) 1,000 mg, Intravenous, ONCE, 1 dose, On Wed12/30/20 at 0445 0448 (New Bag - Prov ider: Lavonne Cheung RN)0516 (Stopped - Provider: Lavonne Cheung RN) No Frequency Medication Order 12/28/2020 12/29/2020 12/30/2020 ceFAZolin (ANCEF) 1 g injection Starting on Wed12/30/20 at 0440, For 1 dose, Lavonne Cheung: cabinet override 0452 (Not Given - Pr ovider: Lavonne Cheung RN - Reason: Other - Comment: see charted MED given) dextrose 5 % solution Starting on Wed12/30/20 at 0441, For 1 dose, Lavonne Cheung: cabinet override 0452 (Not Given - Pr ovider: Lavonne Cheung RN - Reason: Other - Comment: see charted MED given) (unrecognized sect ion and content) No Status Records FoundNo Status Records Found INFORMATION SOURCE (unrecogn ized section and content) DATE CREATED AUTHOR 01/01/2021 Kim aguilera DATE CREATED AUTHOR 'S ORGANIZ ATION 12/10/2023 [facility] FOR RECORDS PERTAINING TO PATIENTS WHO ARE OR HAVE BEEN ENROLLED IN A CHEMICAL DEPENDENCY/SUBSTANCEABUSE PROGRAM, SOME INFORMATION MAY BE OMITTED. This clinical summary was aggregated from multiple sources. Caution should be exercised in using it in the provision of clinical care. This summary normalizes information from multiple sources, and as a consequence, information in this document may materially change the coding, format and clinical context of patient data. In addition, data may be omitted in some cases. CLINICAL DECISIONS SHOULD BE BASED ON THE PRIMARY CLINICAL RECORDS. [employer] provides no warranty or guarantee of the accuracy or completeness of information in this document.
--- NOTE | 2025-02-26 02:12 | ED.GENADUL1 ---
HPI HPI - General Adult General Chief complaint: Head Injury Stated complaint: HEAD INJURY Time Seen by Provider: 02/26/25 01:39 Source: patient Mode of arrival: ambulance Limitations: no limitations History of Present Illness HPI narrative: This 44-year-old male is brought to emergency department by EMS from [employer]. Apparently he was stumbling around in the store and according to some report may have fallen in the bathroom. He presents with altered mental status and some dried blood in his left ear. The patient states that he had a couple of beers throughout the day and then got onto his bike and was driving around [place] on his bike and went to [employer] for snacks. He also states that his hearing is disrupted because he was using a circular saw during the day yesterday and was not wearing any hearing protection. He admits to drinking 1 beer and having a couple sips of a second beer but upon arrival appears to be under the influence of other substances with somnolence and small pupils. He denies any chest pain or shortness of breath. He does not have any neck or back pain. Related Data Home Medications ?Medication ?Instructions ?Recorded ?Confirmed No Known Home Medications 12/05/23 12/05/23 Allergies Allergy/AdvReac Type Severity Reaction Status Date / Time No Known Drug Allergies Allergy Verified 02/26/25 01:45 Review of Systems ROS Status of ROS 10 or more systems reviewed and unremarkable except as noted in history and below Exam Narrative Exam Narrative: Vital signs and Nursing Notes reviewed: Patient is afebrile with a normal pulse, normal blood pressure, he is not hypoxic with pulse ox of 100% on room air General: Patient is sitting up with his eyes closed, somewhat somnolent but arousable to verbal stimuli, GCS 15 HEENT: Normocephalic atraumatic, mucous membranes are moist and pink, posterior pharynx is normal in appearance with no exudate, sign of peritonsillar abscess or other notable abnormality, dentition is in decent repair. Eyes are clear, normal conjunctiva, vision is grossly intact, pupils are approximately 2 to 3 mm, no tympanic membrane perforation noted, small amount of dried blood on the left auricle, no hemotympanum or other notable abnormality. There is no tenderness or redness over the mastoid bone, negative langford and raccoon sign Neck: Supple, no midline tenderness Chest: Lungs are clear to auscultation with good air entry, there is no wheezing rhonchi or rales appreciated no accessory muscle use, patient is speaking in complete sentences-no chest wall tenderness to palpation CVS: Regular rate and rhythm S1-S2, no murmurs rubs or gallops, pulses are brisk and equal bilaterally ABD: Soft, nondistended, nontender, no rebound guarding or rigidity, bowel sounds are normal, no pulsatile masses appreciated Extremities: Moving all extremities, no lower extremity tenderness or swelling noted, negative Homans' sign, pulses are brisk and equal bilaterally Skin: Normal in appearance without rash,pallor, petechiae or purpura Neuro: Somnolent but arousable, appears to be under the influence of drugs or alcohol, editing intern strength is intact, anger to nose was difficult for this patient to perform, when asked to raise his legs he bent his knees Constitutional Vital Signs, click to edit/add: Last Vital Signs Temp 97.6 F 02/26/25 01:39 Pulse 63 02/26/25 04:31 Resp 18 02/26/25 04:31 BP 130/89 02/26/25 04:31 Pulse Ox 97 02/26/25 04:31 O2 Del Method Room Air 02/26/25 04:31 Course Vital Signs Vital signs: Vital Signs Temperature 97.6 F 02/26/25 01:39 Pulse Rate 85 02/26/25 01:39 Respiratory Rate 16 02/26/25 01:39 Blood Pressure 134/80 02/26/25 01:39 Pulse Oximetry 100 02/26/25 01:39 Oxygen Delivery Method Room Air 02/26/25 01:39 Temperature 97.6 F 02/26/25 01:39 Pulse Rate 63 02/26/25 04:31 Respiratory Rate 18 02/26/25 04:31 Blood Pressure 130/89 02/26/25 04:31 Pulse Oximetry 97 02/26/25 04:31 Oxygen Delivery Method Room Air 02/26/25 04:31 Medical Decision Making MDM Narrative Medical decision making narrative: This 44-year-old male is brought to emergency department by EMS from a local convenience store where he was found to be stumbling around and may have fallen and struck his left ear. History is difficult to obtain because the patient appears to be under the influence of drugs or alcohol upon arrival. He does admit to drinking beer earlier in the day and states he then got on his bicycle and was driving around town for several hours before going to [employer] for snacks. Upon arrival he is somnolent little arousable. His pupils are constricted. He has difficulty with [id number] testing but his neuroexam is otherwise normal. He denies that he has recently been sick. He does admit to tobacco use and occasional alcohol use stating that he had 1 beer earlier in the day. She does not have any sign of trauma. He had some dried blood in his left external ear/auricle area without any other notable abnormality. He does not have any neck tenderness. His lungs are clear, abdomen is soft. His ENT exam is normal. He did have a peritonsillar abscess in the past but he does not have any sign of any pharyngitis or dental or airway infection at this time. Due to the uncertainty of the history he was taken for a CT scan of the brain. An IV was placed and he was given IV fluids while a workup ensued. He does have an elevated white count at 23.7. Hemoglobin is stable. Electrolytes are normal. Alcohol is less than 3. Urine and urine tox was ordered but the patient was reluctant to give us any urine stating that he does not have to urinate despite IV fluids. Lactic acid is normal. I do not see any sign of any acute infection despite the elevated WBC count. CT scan of the brain was reviewed by radiology and is negative for any acute process. Chest x-ray was reviewed by myself and does not show any acute infiltrate with a normal mediastinum and normal cardiac borders. 0545: Patient is now more alert after sleeping for several hours. He states that last night he had a couple of beers then rode his bike to a friend's house to get a couple cigarettes. He then went to [employer] to get something to drink. He denies that he uses IV drugs, stating that he did at 1 point but no longer does. He denies that he has recently been sick with a fever body aches chest pain cough abdominal pain or flank pain. He does not have any local skin rash. He does have a history of psoriasis but states he is not having a bad flare at this time. He is now anxious to be discharged but I explained to him that we are going to get 2 sets of blood cultures and repeat his CBC before he will be discharged. He is agreeable to this. The blood cultures were drawn and the patient decided that he wished to leave AGAINST MEDICAL ADVICE at this time. He does not wish to submit a urine. He signed out AGAINST MEDICAL ADVICE verbalizing understanding that he has an elevated white count that the etiology of is unclear at this time which could lead to a blood-borne infection, sepsis, permanent disability and . Blood cultures are pending and he will be made aware of the blood culture results if they come back positive. He reiterates to me that he feels fine and will return to the emergency department if he starts feeling sick, spikes a fever or for any concerns. Lab Data Lab results reviewed: Yes I reviewed the patient's lab results Labs: Lab Results 02/26/25 Range/Units 02:08 WBC 23.7 H (4.0-11.0) 10^3/uL RBC 4.27 L (4.70-6.10) 10^6/uL Hgb 13.0 L (14.0-18.0) g/dL Hct 39.7 L (42.0-54.0) % MCV 93.0 (80.0-94.0) fL MCH 30.4 (25.9-34.0) pg MCHC 32.7 (29.9-35.2) g/dL RDW 12.8 (11.0-15.0) % Plt Count 320 (150-450) 10^3/uL MPV 9.0 L (9.5-13.5) fL Seg Neuts % (Manual) 92.0 H (43.0-75.0) Lymphocytes % (Manual) 4.0 L (20.5-60.0) % Atypical Lymphs % (Man) 1.0 % Monocytes % (Manual) 4.0 (1.7-12.0) % Eosinophils % (Manual) 0.0 L (0.9-7.0) % Basophils % (Manual) 0.0 L (0.2-2.0) % Neutrophils # (Manual) 21.80 H (1.4-6.5) 10^3/uL Lymphocytes # (Manual) 0.94 L (1.20-3.80) 10^3/uL Abs Atypical Lymphs Man 0.23 Monocytes # (Manual) 0.94 H (0.30-0.80) 10^3/uL Eosinophils # (Manual) 0.00 (0.00-0.70) 10^3/uL Basophils # (Manual) 0.00 (0.00-0.10) 10^3/uL Sodium 139 (136-145) mmol/L Potassium 3.8 (3.5-5.1) mmol/L Chloride 101 (98-107) mmol/L Carbon Dioxide 31.9 (21.0-32.0) mmol/L Anion Gap 9.9 BUN 13.0 (7.0-18.0) mg/dL Creatinine 1.12 (0.70-1.30) mg/dL Est GFR ( Amer) >60 (>=60 mL/min/1.73m^2) Est GFR (Non-Af Amer) >60 (>=60 mL/min/1.73m^2) BUN/Creatinine Ratio 11.6 Glucose 79 (74-106) mg/dL Lactate 1.8 (0.4-2.0) mmol/L Calcium 8.6 (8.5-10.1) mg/dL Total Bilirubin 0.4 (0.2-1.0) mg/dL AST 49 H (15-37) U/L ALT 51 (16-63) U/L Alkaline Phosphatase 87 (46-116) U/L Total Protein 7.4 (6.4-8.2) g/dL Albumin 4.3 (3.4-5.0) g/dL Globulin 3.1 g/dL Albumin/Globulin Ratio 1.4 Ethanol Quant <3 mg/dL Discharge Plan Discharge Stand Alone Forms: Portal Instructions Chief Complaint: Head Injury Clinical Impression: Altered mental status, Leukocytosis Patient Disposition: Left Against Medical Advice Time of Disposition Decision: 06:37 Condition: Good Prescriptions / Home Meds: No Action No Known Home Medications Print Language: [place] Citizen Instructions: Leukocytosis (ED), Altered Mental Status (ED) Additional Instructions: Return to the emergency department for fever, headache, confusion, chest pain shortness of breath abdominal pain back pain skin rash or any concerns. Referrals: Physician,Non-Staff, MD [Primary Care Provider] - 1 week
[2025-02-26 02:16] LABS: Hematocrit 39.7 % (42.0-54.0); Hemoglobin 13.0 g/dL (14.0-18.0); Mean Corpuscular HGB Conc 32.7 g/dL (29.9-35.2); Mean Corpuscular Hemoglobin 30.4 pg (25.9-34.0); Mean Corpuscular Volume 93.0 fL (80.0-94.0); Platelet Count 320 10^3/uL (150-450); Red Blood Count 4.27 10^6/uL (4.70-6.10); White Blood Count 23.7 10^3/uL (4.0-11.0)
[2025-02-26 02:32] LABS: Alanine Aminotransferase 51 U/L (16-63); Albumin Globulin Ratio 1.4; Albumin Level 4.3 g/dL (3.4-5.0); Alkaline Phosphatase 87 U/L (46-116); Anion Gap 9.9; Aspartate Amino Transferase 49 U/L (15-37); Blood Urea Nitrogen 13.0 mg/dL (7.0-18.0); Calcium 8.6 mg/dL (8.5-10.1); Carbon Dioxide 31.9 mmol/L (21.0-32.0); Chloride 101 mmol/L (98-107); Estimated GFR (African America >60 (>=60 mL/min/1.73m^2); Estimated GFR (Non-African Ame >60 (>=60 mL/min/1.73m^2); Globulin 3.1 g/dL; Glucose 79 mg/dL (74-106); Potassium 3.8 mmol/L (3.5-5.1); Sodium 139 mmol/L (136-145); Total Protein 7.4 g/dL (6.4-8.2)
--- NOTE | 2025-02-26 02:32 | XR_ITS ---
The [address] [address] Patient Name: GILBERTO FONG MRN: [id number] date: 1980 Sex: M Assigned Patient Location: ER Current Patient Location: Accession/Order Number: [id number] Exam Date: 02/26/2025 02:42 Report Date: 02/26/2025 08:22 At the request of: JOSESITO DEWEY MD Procedure: XR chest 1V Single view chest: CLINICAL HISTORY: AMS COMPARISON: None FINDINGS: The heart is normal in size. The lungs are clear. The pulmonary vasculature is normal. Mediastinum and hilar regions are unremarkable. No pleural effusions are seen. Visualized bones are intact. XR/XR chest 1V IMPRESSION: NO ACUTE PROCESS. Impression dictated by: Donte Seo Jr., D.O. 02/26/2025 8:22 AM Dictation Location: [place] [address] Electronically authenticated by: [id number] Y Date: 02/26/2025 08:22
[2025-02-26 02:35] LABS: Atypical Lymphocytes % Manual 1.0 %; Atypical Lymphocytes Abs Man 0.23; Basophils Abs Manual 0.00 10^3/uL (0.00-0.10); Basophils Percent Manual 0.0 % (0.2-2.0); Eosinophils Absolute Manual 0.00 10^3/uL (0.00-0.70); Eosinophils Percent Manual 0.0 % (0.9-7.0); Lymphocytes Absolute Manual 0.94 10^3/uL (1.20-3.80); Lymphocytes Percent Manual 4.0 % (20.5-60.0); Monocytes Absolute Manual 0.94 10^3/uL (0.30-0.80); Monocytes Percent Manual 4.0 % (1.7-12.0); Segmented Neut Absolute Manual 21.80 10^3/uL (1.4-6.5); Segmented Neutrophils % Manual 92.0 (43.0-75.0)
[2025-02-26] MEDS: 0.9 % SODIUM CHLORIDE 1,000 ML 1000 ML IV ×2 (02:52→04:34)
[2025-02-26 02:58] VITALS: BP 125/90; PULSE 65; O2SAT 96
[2025-02-26 03:31] LABS: Lactate/Lactic Acid 1.8 mmol/L (0.4-2.0)
[2025-02-26 04:31] VITALS: BP 130/89; PULSE 63; O2SAT 97
[2025-02-26 06:35] LABS: Hematocrit 36.7 % (42.0-54.0); Hemoglobin 12.4 g/dL (14.0-18.0); Immature Granulocytes Abs Auto 0.07 10^3/uL (0.00-0.03); Immature Granulocytes Pct Auto 0.5 % (0.0-0.5); Lymphocytes Absolute Auto 1.4 10^3/uL (1.2-3.8); Mean Corpuscular HGB Conc 33.8 g/dL (29.9-35.2); Mean Corpuscular Hemoglobin 31.5 pg (25.9-34.0); Mean Corpuscular Volume 93.1 fL (80.0-94.0); Platelet Count 287 10^3/uL (150-450); Red Blood Count 3.94 10^6/uL (4.70-6.10); White Blood Count 14.4 10^3/uL (4.0-11.0)
[2025-02-26 06:41] VITALS: BP 130/92; PULSE 68; O2SAT 96
== END 2025-02-26 06:45 | disposition left against medical advice (07) ==
PROVIDERS: Emergency Provider Emergency Medicine
DX: R41.82 Altered mental status, unspecified (principal); D72.829 Elevated white blood cell count, unspecified; Z53.29 Procedure and treatment not carried out because of patient's decision for other reasons
CPT/HCPCS: 36415; 70450; 71045; 80053; 80307; 80320; 81001; 83605; 85007; 85025; 85027; 87040; 96360; 96361; 99285